=== PATIENT | female | born 1950 | race Caucasian/White ===

== ENCOUNTER → 2022-10-23 | Outpatient (CLI) | payer MEDICARE, OTHER, SELFPAY ==
--- NOTE | 2022-10-23 12:37 | MRI_ITS ---
STUDY: BILATERAL BREAST MR WITHOUT AND WITH CONTRAST REASON FOR EXAM: Female, 72 years old. Breast cancer staging. Malignancy in right breast. TECHNIQUE: Multi-sequence multi-echo imaging of both breasts was performed with a dedicated breast coil. T1-weighted and T2-weighted images were performed before the administration of contrast. T1-weighted images were also performed after the intravenous administration of 20ml of Clariscan contrast. COMPARISON: Prior breast MRI study dated June 26, 2022. FINDINGS: RIGHT BREAST: Scattered areas of fibroglandular density with minimal background enhancement Seroma cavity at the 12:00 position of the right breast measuring 4.4 cm x 3 cm x 2.4 cm with fluid within it. Marked deformity of the anterior aspect of the breast with skin thickening and nipple retraction. Lateral to the seroma cavity there is an ovoid enhancing mass measuring 9 mm x 3 mm x 4 mm with a patchy area of non-mass enhancement posterior to the ovoid enhancing mass. This finding is relatively stable compared to the prior MRI study dated June 2022. If there has been no histologic confirmation of the small enhancing mass lateral to the seroma cavity, a second look ultrasound to identify this mass is recommended. If the mass is seen on second look ultrasound, an ultrasound-guided biopsy of this mass can be performed. LEFT BREAST: Scattered fibroglandular density with minimal background enhancement. There are no abnormal enhancing masses or areas of non-mass enhancement in the left breast. No enlarged or abnormal lymph nodes. No abnormality in the visualized regions of the chest or liver. MRI/Breast Bilateral W/O and W IMPRESSION: Large seroma cavity at the 12:00 position of the right breast unchanged from prior breast MRI study with contrast dated June 26, 2022. Ovoid enhancing mass lateral to the seroma cavity with adjacent and slightly posterior non-mass enhancement. Both of these findings were also present on the prior study. See discussion above regarding second look ultrasound to identify the ovoid enhancing mass lateral to the seroma cavity and potential histologic confirmation if that lesion is seen by ultrasound. CATEGORY: BIRADS Category 6: Known Biopsy-Proven Malignancy - Appropriate Action Should Be Taken. A letter regarding these results will be sent to the patient by the facility within 30 days. Electronically Signed: Pilo Barcenas, at 15:58 EDT ,
[2022-10-23 13:21] LABS: CREATININE FINGERSTICK < 0.9 mg/dL (0.55-1.02); EGFR FINGERSTICK > 60.0000 mL/min (>60)
== END | disposition home or self-care (01) ==
PROVIDERS: Referring Provider Surgery; Visit Provider Surgery
DX: C50.411 Malignant neoplasm of upper-outer quadrant of right female breast (principal)
CPT/HCPCS: 77049; A9575; A4216; C8908

== ENCOUNTER → 2023-02-10 | Outpatient (CLI) | payer MEDICARE, OTHER, SELFPAY ==
--- NOTE | 2023-02-10 13:34 | MRI_ITS ---
STUDY: BILATERAL BREAST MR WITHOUT AND WITH CONTRAST REASON FOR EXAM: Female, 72 years old. Right breast cancer diagnosed in April 2020 and again in April 2022. Follow-up after chemotherapy. TECHNIQUE: Multi-sequence multi-echo imaging of both breasts was performed with a dedicated breast coil. T1-weighted and T2-weighted images were performed before the administration of contrast. T1-weighted images were also performed after the intravenous administration of 19 mL of Clariscan contrast. COMPARISON: Prior breast MRI studies dated June 2022 and October 2022. FINDINGS: RIGHT BREAST: Scattered fibroglandular density with no background enhancement. Seroma cavity at the 12:00 position of the right breast, relatively unchanged from prior study. Minimal thin rim enhancement, skin thickening and nipple retraction. No abnormal enhancing masses or areas of non-mass enhancement in the right breast. LEFT BREAST: Scattered fibroglandular densities with no background enhancement. No abnormal enhancing masses or areas of non-mass enhancement in the left breast. No enlarged or abnormal lymph nodes. No abnormality in the visualized regions of the chest or liver. MRI/Breast Bilateral W/O and W IMPRESSION: Seroma cavity and deformity of the right breast, similar to what was present on the prior breast MRI with contrast dated October 2022. No new finding. CATEGORY: BIRADS Category 2: Benign. A letter regarding these results will be sent to the patient by the facility within 30 days. Electronically Signed: Pilo Barcenas MD at 10:32 EDT ,
[2023-02-10 14:09] LABS: CREATININE FINGERSTICK 1.1 mg/dL (0.55-1.02)
== END | disposition home or self-care (01) ==
PROVIDERS: PCP Family Medicine; Referring Provider Internal Medicine Hematology & Oncology; Visit Provider Internal Medicine Hematology & Oncology
DX: C50.412 Malignant neoplasm of upper-outer quadrant of left female breast (principal); Z17.1 Estrogen receptor negative status [ER-]
CPT/HCPCS: 77049; A9575; A4216; C8908